=== PATIENT | female | born 1965 | race Hispanic/Latino ===

== ENCOUNTER 2016-08-07 05:00 | Emergency (ER) | payer OTHER ==
[~2016-08-07] VITALS: Ht 154.9 cm; Wt 49.6 kg
[~2016-08-07 05:00] MED LIST: FLUT16SP NS; GABA600T2 PO; INSU100I18 SUBQ; LEVO125T6 PO; NPH,100V11 SUBQ
--- NOTE | 2016-08-07 05:05 | ED.REPORT ---
HPI-General Illness Date of Service Aug 07, 2016 ED Provider: Dale Penny MD Patient is a 51 year old female with a history of diabetes mellitus with neuropathy, hypertension, and hypothyroidism who presents to the ED with right hip pain following multiple ground level fall this morning. The patient has been sleeping on the floor the last few nights, as she is in the process of moving. The patient got up to go to the bathroom and realized that her right leg was numb. She reported severe tingling down her entire leg. The patient was unable to ambulate due to those symptoms, falling 4-5x times while trying to walk to the bathroom. Patient now complains of right hip pain. Patient denies head injury, loss of consciousness, chest pain, abdominal pain, or any other injuries. The patient later clarified that she developed difficulty ambulating for the past week. She has experienced pain in her bilateral knees, with her knees sometimes giving out on her when she ambulates. The patient has trouble walking up her stairs as she becomes too weak. Nursing Notes Stated Complaint: R HIP/ LEG PAIN, GLF Nursing Notes Reviewed: Yes Allergies: Uncoded Allergies: SULPHA (Allergy, Intermediate, itchy/hives, 08/07/16) Scheduled Fluticasone Propionate (Fluticasone Propionate Nasal) 16 Gm [place].susp 1 SPRAY NS BID Gabapentin (Gabapentin) 600 Mg Tablet 600 MG PO BID Insulin Lispro (HumaLOG U100 Insulin Pen) 100 Unit/1 Ml Insuln.pen 1 UNIT SUBQ TID-INSULIN Blood Sugar Lispro Correction <151 0 units 151-175 1 unit 176-200 2 units 201-225 3 units 226-250 4 units 251-275 5 units 276-300 6 units 301-325 7 units 326-350 8 units 351-375 9 units 376-400 10 units >400 12 units Check blood sugars before meals and at bedtime. Use correction factor only before meals. Levothyroxine (Levothyroxine) 125 Mcg Tablet 125 MCG PO DAILY NPH, Human Insulin Isophane (HUMulin-N U100 Insulin Vial) 100 Unit/1 Ml Vial 40 UNIT SUBQ evening Naproxen (Naprosyn) 500 Mg Tablet 500 MG PO BID General Time Seen by MD: 05:04 Chief Complaint Other (right hip pain) Hx Obtained From: Patient Arrived By: Ambulance Sudden in Onset?: Yes Onset Occurred: Just prior to arrival Symptom Duration: Since onset Location: : Hip right Quality: Painful Severity: Current: Moderate Severity: Maximum: Moderate Recent Healthcare: No recent doctor visit, No recent hospitalization Similar Sx Previous: No Past Medical History Past Medical History Diabetes mellitus with neuropathy Hypothyroidism Anemia Foot ulcer - followed at wound care clinic Reports: Hypertension Past Surgical History none reported Family History Noncontributory Smoking History Never Smoker Social History Alcohol Use: Denies alcohol use Drug Use: Denies drug use Other Social History: Good social support, Lives with children, Local resident Ambulatory Status Independent Review of Systems Full Review of Systems Cardiovascular: Denies: Chest pain GI: Denies: Abdominal pain Musculoskeletal: Reports: Extremity pain, Joint pain Neurologic: Reports: Numbness, Problem walking, Weakness, Denies: Change LOC, Headache Complete sys rev & neg: except as marked. Physical Exam Vital Signs Vital Signs Date Time Temp Pulse Resp B/P Pulse Ox O2 Delivery O2 Flow Rate FiO2 08/07/16 06:47 36.8 84 14 142/78 98 Room Air 08/07/16 05:11 36.7 87 14 151/68 98 Room Air Initial VS: Reviewed Skin: Warm, Dry, No cyanosis Psychiatric: Mood/affect normal, Behavior normal, Normal thought content General/Constitutional: Awake, Alert, No acute distress Appearance / Presentation: Positive: Obese Head / Eyes: Atraumatic, Normocephalic, PERRL ENT: Airway patent Neck: Supple, Full range of motion, No midline vertebral tend Respiratory / Chest: Breath sounds NL, Breath sounds = bilat, No respiratory distress, No chest tenderness, No chest wall deformity, No crepitus Cardiovascular: Heart rate NL, Regular rhythm Abdomen: Soft, Non-tender, No guarding, No rebound Upper Extremities Upper Extremity / MS: Atraumatic, No deformity, Neurologic intact, Vascular intact Lower Extremity / Pelvis / MS: No deformity, Neurologic intact Right Hip: Positive: Tenderness present... (minimally tender with rotation of the right hip), Negative: Ecchymosis present, Swelling present... Neurologic: No motor deficits Subjective decreased sensation right foot, but can feel light touch. Interpretation & Diagnostics X-Ray Interpretation Xray Interpretation: Impression: No acute fracture. X-Ray Ordered: Pelvis, Hip right Interpretation / Wet Read by: Wet read ED physician Re-Eval/Medical Decision Med Decision/Clinical Course 51-year-old presents with tingling and numbness in the leg after sleeping on the floor all night. She has had progressive weakness and intermittent tingling in the past, with the story suggestive of possible spinal stenosis. CT of the lumbar spine reveals disc disease with foraminal narrowing, but no evidence of impingement on the thecal sac. She apparently has a compression neuropraxis presently, which should resolve. She will dose Decadron given. Naprosyn to follow. Follow-up with PCP. Discharged in stable condition. Cane or walker for gait support recommended. Source of Hx: Old records Time of Eval: 05:40 Patient Status: Condition improved Re-Evaluation/Progress Note: Rechecked the patient. Her x-ray was negative. Her daughter carries the diagnosis of MS and she is concerned that her mother has a similar process going on. Due to her symptoms she will have a CT scan of her back. Counseled Regarding: Diagnosis, Need for follow-up, When/why to return to ED Discharge & Departure Primary Impression: Neuropraxia of right lower extremity Additional Impressions: Contusion of right hip Encounter type: initial encounter Qualified Code: S70.01XA - Contusion of right hip, initial encounter Fall from ground level Disposition: Home Discharge Condition All VS Reviewed: Yes Condition: Stable Patient Instructions: Contusions in Adults (ED), Peripheral Neuropathy (ED) Referrals: Enrique Morgan MD (PCP) Tasneem Attestation Portions of this note were transcribed by Guillermina Mcgregor. I, Dr. Penyn personally performed the history, physical exam and medical decision-making; I reviewed and confirmed the accuracy of the information in the transcribed note. Signed by: Tasneem Carty, 08/07/2016 0603 copies to: Enrique Morgan MD, Christopher W MD Aug 07, 2016 05:05 Guillermina Mcgregor Aug 07, 2016 05:12
[2016-08-07 05:11] VITALS: BP 151/68; PULSE 87; RESP 14; O2SAT 98
[2016-08-07 06:47] VITALS: BP 142/78; PULSE 84; RESP 14; O2SAT 98
[2016-08-07] MEDS ORDERED: Dexamethasone 20 mg/2 mL Oral Solution PO ONE (07:30)
[2016-08-07] MEDS ORDERED: NAPR500T PO (07:54)
[2016-08-07 08:27] VITALS: BP 114/61; PULSE 88; RESP 16; O2SAT 95
--- NOTE | 2016-08-07 09:18 | DRSVH ---
PROCEDURE: X-RAY PELVIS W/LAT HIP (RT) ([id number]) INDICATIONS: fell on hip TECHNIQUE: AP pelvis with lateral view(s) of the right hip(s). COMPARISON: None. FINDINGS: Bones: No fractures or dislocations. Pelvic ring appears intact. No suspicious bony lesions. Soft tissues: The visualized bowel gas pattern is normal. No suspicious soft tissue calcifications. IMPRESSION: No displaced fracture seen. If there is continued pain, followup exam or additional sheila ging such as MRI or CT could be performed for further assessment. Dictated by: Jorge Hernandes RRA Interpreted: Luciano Yan MD on 08/07/2016 at 9:17 Transcribed by: TANIA on 08/07/2016 at 9:18 Approved by: Luciano Yan M.D. on 08/07/2016 at 15:40
--- NOTE | 2016-08-07 10:15 | DRSVH ---
PROCEDURE: CT LUMBAR SPINE WITHOUT CONTRAST ([id number]) INDICATIONS: Right leg numbness. Possible spinal stenosis TECHNIQUE: Noncontrast 3 mm thick sections acquired from the T12 level to the sacrum. Sagittal and coronal refo rmats were constructed. For radiation dose reduction, the following was used: automated exposure co ntrol. COMPARISON: None. FINDINGS: Image quality: Excellent. Bones: There is normal bony alignment. No acute vertebral body compression fractures. No suspiciou s lytic or blastic bony lesions. Mild multilevel degenerative disc disease and facet arthropathy are noted. There is [id number] L4-L5 central canal narrowing secondary to disc disease and facet ar thropathy. Moderate bilateral L4-L5 neural foraminal narrowing secondary to disc disease and facet ar thropathy. Soft tissues: No retroperitoneal masses or hematomas. Visualized aorta is normal in caliber. Scatte red atherosclerotic calcifications noted in the visualized abdominal and pelvic vasculature. IMPRESSION: No fracture. No acute osseous lesion. If symptoms and/or clinical suspicion for patholog y persists, evaluation with MRI may be helpful for further assessment. Dictated by: Francie Pham MD, PhD on 08/07/2016 at 10:10 Approved by: Francie Pham MD, PhD on 08/07/2016 at 10:13
== END 2016-08-07 08:28 | disposition home or self-care (01) ==
LOC: SED 05:00
DX: S84.21XA Injury of cutaneous sensory nerve at lower leg level, right leg, initial encounter (principal); S70.01XA Contusion of right hip, initial encounter; W18.39XA Other fall on same level, initial encounter; Y93.01 Activity, walking, marching and hiking; Y92.009 Unspecified place in unspecified non-institutional (private) residence as the place of occurrence of the external cause; Y99.8 Other external cause status; E11.9 Type 2 diabetes mellitus without complications; I10 Essential (primary) hypertension; E03.9 Hypothyroidism, unspecified; Z79.4 Long term (current) use of insulin; Z88.2 Allergy status to sulfonamides

== ENCOUNTER 2016-11-29 13:32 | Observation (INO) | payer OTHER ==
[~2016-11-29] VITALS: Ht 157.5 cm; Wt 104.5 kg
[~2016-11-29 13:32] MED LIST changes: +NAPR500T PO
[2016-11-29 13:47] VITALS: BP 127/71; PULSE 82; RESP 13; O2SAT 96
[2016-11-29] MEDS ORDERED: OMEP20CA11 PO (14:09)
[2016-11-29] MEDS ORDERED: TRAM50TA2 PO (14:09)
[2016-11-29] MEDS ORDERED: SIMV20TA4 PO (14:09)
[2016-11-29] MEDS ORDERED: FERR-83 PO (14:09)
[2016-11-29] MEDS ORDERED: LISI10TA PO (14:09)
[2016-11-29] MEDS ORDERED: 0.9% Sodium Chloride 1,000 ML IV ONE ×2 (14:42→20:15)
[2016-11-29] MEDS ORDERED: MetoCLOpramide 5 mg/mL 2 mL Inj IVPUSH ONE (14:45)
[2016-11-29 14:50] LABS: BASOPHILS % (AUTO) 0.4 % (0-3); EOSINOPHILS % (AUTO) 3.4 % (0-5); MONOCYTES % (AUTO) 6.8 % (4-12); Mean Corpuscular Hemoglobin 24.5 pg (27.0-35.0); Mean Corpuscular Volume 75.2 fL (81-100); NEUTROPHILS % (AUTO) 65.2 % (40-74); Platelet Count 298 bil/L (150-400)
--- NOTE | 2016-11-29 14:56 | ED.REPORT ---
HPI-General Illness Date of Service Nov 29, 2016 ED Provider: Malik Hurt PA-C Milady is a 51-year-old female with a history of diabetes and hypertension presenting to emergency Department with a chief complaint of headache and stiff neck. He was seen initially at urgent care and referred to the emergency department when her blood sugar was noted to be quite high. Patient describes a 3 month history of daily headaches which she describes as pressure, global, throbbing and involving left eye pain. She reports a headache several days ago caused a small amount of bleeding in her left eye. Headaches 09/21. Last night she reported that she developed stiffness in her neck and shoulders, tremors and felt quite weak. She reports that she has been experiencing weakness in her right hand which causes her to drop things as well as a sensation of numbness in her forearms and pain in her hands bilaterally. She also reports 3 month history of daily left-sided nosebleeds. Symptoms are associated with mild epigastric pain which is improved with omeprazole, nausea, and a one-month history of cough productive of clear sputum. she reports an episode in July where she experience right leg numbness for several days. This episode is apparently associated with a potential tick bite, she denies travel out of the region. Denies dizziness, vision changes, hearing changes, fever, shaking chills, history of smoking, vomiting, diarrhea, melena, hematochezia, urinary symptoms. Denies recent medication changes. Nursing Notes Stated Complaint: HIGH BLOOD SUGAR,BILATERAL ARM NUMBNESS Chief Complaint: General Complaint Nursing Notes Reviewed: Yes Allergies: Coded Allergies: Sulfa (Sulfonamide Antibiotics) (Verified Allergy, Intermediate, BUMPS ALL OVER MY BODY, 11/29/16) Scheduled Furosemide (Furosemide) 20 Mg Tab 20 MG PO QAM Gabapentin (Gabapentin) 600 Mg Tablet 600 MG PO QID Insulin Glargine (Lantus U100 Insulin Vial) 100 Unit/Ml Vial 25 UNIT SUBQ HS Insulin Human Lispro (HumaLOG U100 Insulin Vial) 100 Unit/Ml Unit 20 UNIT SUBQ DAILYWD HUMALOG 40 UNITS WITH BREAKFAST AND 20 UNITS WITH DINNER Insulin Human Lispro (HumaLOG U100 Insulin Vial) 100 Unit/Ml Unit 40 UNIT SUBQ DAILYWM HUMALOG 40 UNITS WITH BREAKFAST AND 20 UNITS WITH DINNER Levothyroxine (Levothyroxine) 125 Mcg Tablet 125 MCG PO DAILY Lisinopril (Lisinopril) 10 Mg Tablet 10 MG PO HS Loratadine (Loratadine) 10 Mg Capsule 10 MG PO HS Metformin (Glucophage) 1,000 Mg Tablet 1,000 MG PO BIDWM Simvastatin (Simvastatin) 20 Mg Tablet 20 MG PO HS Scheduled PRN Ibuprofen (Ibuprofen) 200 Mg Capsule 600 MG PO DAILY PRN PRN For Headache Omeprazole (Omeprazole) 20 Mg Capsule.dr 20 MG PO DAILY PRN PRN STOMACH ACID Tramadol (Tramadol) 50 Mg Tablet 50 MG PO TID PRN PRN BACK PAIN General Time Seen by MD: 14:15 Chief Complaint Other (high blood sugar, bilateral arm numbness) Past Medical History Past Medical History Diabetes mellitus with neuropathy Hypothyroidism Anemia Foot ulcer - followed at wound care clinic Reports: Hypertension Past Surgical History none reported Family History Noncontributory Smoking History Never Smoker Social History Alcohol Use: Denies alcohol use Drug Use: Denies drug use Other Social History: Good social support, Lives with children, Local resident Ambulatory Status Independent Review of Systems General: Denies fever, chills, malaise. HEENT: Admits headache, denies congestion, sore throat, sneezing Respiratory: Admits cough, denies shortness of breath, wheezing. Cardiovascular: Denies chest pain, palpitations. Gastrointestinal: Admits abdominal pain, denies vomiting, diarrhea, melena, hematochezia Genitourinary: Denies frequency, urgency, dysuria, hematuria. Otherwise as noted in HPI. Physical Exam General: Well appearing, well developed, obese, no acute distress. Head: Atraumatic, normocephalic. No mastoid tenderness. Eyes: No scleral icterus or injection. No discharge. PERRL. Vision grossly intact. Ears: Pinna and tragus nontender with manipulation. External auditory canal patent, atraumatic and without discharge. Tympanic membrane lindsay, shiny and translucent without fluid, bulging, retraction or perforation. Hearing grossly intact. Nose: No obvious source of bleeding is noted. Symmetrical, nares patent without discharge. Mild left frontal and maxillary sinus tenderness. Negative right frontal and maxillary sinus tenderness Mouth/pharynx: normal dentition, mucus membranes moist. Tonsils 2+ and symmetrical, uvula midline. Pharynx noninjected, no cobblestoning or discharge. Voice clear. Neck: Supple, excellent range of motion. No tenderness or lymphadenopathy. Trachea midline. Respiratory: Regular rate and rhythm. Breath sounds present, clear to auscultation and equal bilaterally. No respiratory distress. No increased work of breathing, speaks in complete sentences. Cardiovascular: Regular rate and rhythm, without murmur, gallop or rub. No pedal edema. Gastrointestinal: Abdomen flat and non-tender without guarding or rebound. Bowel sounds normoactive. Skin: Warm and dry. Neurological: Normal finger-nose, rapid hand, he will hypertension, negative pronator drift. Deltoid abduction, strength 5/5 B/L. Wrist flexion and extension, finger flexion and abduction slightly reduced on right when compared to left. Sensation to light touch intact over deltoid as well as first, third and fifth digits B/L. Biceps, triceps and brachioradialis reflexes difficult to elicit B/L. Negative Kernig and Brudzinski's. Cranial nerves: Vision grossly intact, PERRL, EOMI. Facial motion symmetrical, sensation to light touch over forehead, maxilla and mandible present and equal B /L. Voice clear and fluent, no drooling/pooling of saliva, uvula rises midline. Psychological: Alert and oriented. Speech appropriate, linear and logical. Behavior appropriate. Vital Signs Vital Signs Date Time Temp Pulse Resp B/P Pulse Ox O2 Delivery O2 Flow Rate FiO2 11/29/16 13:47 36.4 82 13 127/71 96 Room Air Normal Interpretation & Diagnostics Lab Results Interpretation Result Diagram: 11/29/16 1415 11/29/16 1415 Test 11/29/16 14:15 White Blood Count 10.2th/mm3 (3.8-10.1) Red Blood Count 4.40mil/mm3 (3.90-5.20) Hemoglobin 10.8g/dL (12.0-15.6) Hematocrit 33.1% (35.0-46.0) Mean Corpuscular Volume 75.2fL (81-100) Mean Corpuscular Hemoglobin 24.5pg (27.0-35.0) Mean Corpuscular Hemoglobin Concent 32.6% (32.0-37.0) Red Cell Distribution Width 15.5% (12.3-15.4) Platelet Count 298bil/L (150-400) Neutrophils (%) (Auto) 65.2% (40-74) Lymphocytes (%) (Auto) 24.0% (14-46) Monocytes (%) (Auto) 6.8% (4-12) Eosinophils (%) (Auto) 3.4% (0-5) Basophils (%) (Auto) 0.4% (0-3) Prothrombin Time 9.9sec (8.1-12.5) Prothromb Time International Ratio 0.93ratio Sodium Level 128mEq/L (134-144) Potassium Level 4.7mEq/L (3.5-5.2) Chloride Level 92mEq/L (97-108) Carbon Dioxide Level 20mmol/L (18-29) Blood Urea Nitrogen 28mg/dL (6-24) Creatinine 1.51mg/dL (0.57-1.00) Estimat Glomerular Filtration Rate 52mL/min (>59) Glucose Level 471mg/dL (60-99) Calcium Level 9.5mg/dL (8.5-10.1) X-Ray Chest Interpretation Chest Xray Interpretation: PROCEDURE: X-RAY CHEST, TWO VIEWS ([id number]) INDICATIONS: 1 month cough IMPRESSION: No radiographic evidence of acute cardiopulmonary pathology. Interpretation / Wet Read by: Interpret - Radiologist CT Head Interpretation PROCEDURE: CT BRAIN WITHOUT CONTRAST ([id number]) INDICATIONS: daily headaches, right hand weakness IMPRESSION: 1. No acute intracranial hemorrhage. 2. Left maxillary sinus disease appears chronic may be related to a dental process and clinical correlation is recommended. Interpretation / Wet Read by: Interpret - Radiologist Re-Eval/Medical Decision Med Decision/Clinical Course This 51-year-old female with a history of diabetes and hypertension presenting from the urgent care where her blood sugar was noted to be quite high. She presents to urgent care with concern for ongoing headaches, neck stiffness, forearm numbness and cough as described in history of present illness. Also reports some history of clumsiness and dropping things with her right hand as well as daily left-sided nosebleeds. Physical examination reveals mild reduced strength in the right upper extremity compared to the left. Otherwise normal neurological exam. Sensation is intact. Otherwise reassuring with a nontender abdomen, clear lung sounds, normal heart tones and vital signs. Order CBC CMP, INR, CXR, CT brain without contrast after consultation with Dr Novoa. Initiate treatment with normal saline, Reglan, ketorolac, acetaminophen, diphenhydramine. CT brain reveals left-sided sinusitis. CBC reveals trivial leukocytosis, mild microcytic anemia. CMP reveals glycemia at 450, CO2 is 20. Chest x-ray is normal. Discussed performing a lumbar puncture with the patient, who wishes to defer. I feel this is reasonable as the patient has no mental status changes, and her neck remains supple. My suspicion for meningitis is low. I find her labs reassuring against diabetic ketoacidosis. Patient reports that she manages her diabetes with insulin but does not have a glucose monitor at this time. I discussed findings with Dr. Novoa. He is concerned about unexplained neurological symptoms and recommends admission for stroke protocol. Discussed case with Dr. Dill, who accepted admission. Patient transferred to the floor in stable condition. . Consultation : Referral / Consult Name: Rosi Adams DO Consulted With: Hospitalist Call Returned at: 19:13 [employer] Estimator: Accepts admit Discharge & Departure Primary Impression: Suspected cerebrovascular accident (CVA) Additional Impression: Sinusitis Sinusitis location: maxillary Chronicity: acute Recurrence: not specified as recurrent Qualified Code: J01.00 - Acute maxillary sinusitis, unspecified Disposition: ADMITTED TO HOSPITAL Referrals: Enrique Morgan MD (PCP) EDSupervising Provider for APC: Florencio Novoa DO copies to: Enrique Morgan MD, Seth PA-C Nov 29, 2016 14:56
--- NOTE | 2016-11-29 15:11 | DRSVH ---
PROCEDURE: X-RAY CHEST, TWO VIEWS ([id number]) INDICATIONS: 1 month cough TECHNIQUE: 2 views of the chest were acquired. COMPARISON: None. FINDINGS: Surgical changes and devices: None. Lungs and pleura: No pleural effusions or pneumothorax. Lungs are clear. Mediastinum: Mediastinal contours are normal. Heart size is normal. Bones and chest wall: No suspicious bony abnormalities. Soft tissues appear unremarkable. IMPRESSION: No radiographic evidence of acute cardiopulmonary pathology. Dictated by: Buzz Mendoza M.D. on 11/29/2016 at 15:09 Approved by: Buzz Mendoza M.D. on 11/29/2016 at 15:10
[2016-11-29 15:16] LABS: INR 0.93 ratio
--- NOTE | 2016-11-29 16:11 | DRSVH ---
PROCEDURE: CT BRAIN WITHOUT CONTRAST ([id number]) INDICATIONS: daily headaches, right hand weakness TECHNIQUE: Noncontrast 4.5 mm thick angled axial sections acquired from the foramen magnum to the vertex, with c oronal reformats. COMPARISON: None. FINDINGS: Image quality: Diagnostic. Brain: There is no acute intra-axial or extra-axial hemorrhage. No extra-axial fluid collection is i dentified. There is no midline shift or mass effect. The orbits are grossly unremarkable. No large areas of diffusely decreased attenuation are evident within the brain to suggest diffuse cer ebral edema. No focal parenchymal abnormality is identified. The ventricles and cortical sulci are age-appropriate. Bones: Calvarium and visualized facial bones are grossly intact. The imaged paranasal sinuses and m astoid air cells are clear. The coastal thickening is noted involving the left maxillary sinus. The re is subtle lucency surrounding the root of one of the left maxillary molars, which is not completel y included on this exam. IMPRESSION: 1. No acute intracranial hemorrhage. 2. Left maxillary sinus disease appears chronic may be related to a dental process and clinical julissa elation is recommended. Dictated by: Cy Segovia M.D. on 11/29/2016 at 15:07 Approved by: Cy Segovia M.D. on 11/29/2016 at 15:09
[2016-11-29] MEDS ORDERED: INSLIS SUBQ ×2 (17:52)
[2016-11-29] MEDS ORDERED: LORA10CA9 PO (17:52)
[2016-11-29] MEDS ORDERED: INSU100V7 SUBQ (17:52)
[2016-11-29] MEDS ORDERED: IBUP200C PO (17:52)
[2016-11-29] MEDS ORDERED: FUR20 PO (17:52)
[2016-11-29] MEDS ORDERED: METF1000 PO (17:52)
[2016-11-29] MEDS ORDERED: Ondansetron 2 mg/mL 2 mL Inj IVPUSH PRN ×2 (19:20→19:50)
[2016-11-29] MEDS ORDERED: Alum-Mag Hydrox-Simeth 30 mL Suspension PO PRN ×2 (19:20→19:50)
[2016-11-29 19:37] VITALS: BP 112/70; PULSE 94; RESP 18; O2SAT 96
[2016-11-29] MEDS ORDERED: Labetalol 5 mg/mL 20 mL Inj IVPUSH PRN (19:50)
[2016-11-29] MEDS ORDERED: Polyethylene Glycol (PEG) 17 Gm Powder PO PRN (19:50)
[2016-11-29] MEDS ORDERED: Heparin 5,000 Unit/mL Inj SUBQ SCH (20:00)
--- NOTE | 2016-11-29 20:23 | PCM.HPMED ---
Subjective Date of Service Nov 29, 2016 Primary Provider: Admitting Physician: Rosi Adams DO Primary Care Physician: Enrique Morgan MD Attending Physician: Rosi Adams DO Chief Complaint: Weakness and dizziness History of Present Illness: Milady is a 51-year-old female with a history of diabetes and hypertension presenting with weakness, dizziness since waking up this AM, and tight shoulders with radiation into the neck. She was seen initially at urgent care and referred to the emergency department when her blood sugar was noted to be quite high. Patient describes a 3 month history of daily headaches which she describes as pressure, global, throbbing and involving left eye pain. She reports a headache several days ago caused a small amount of bleeding in the sclera of her left eye. Headaches 09/21. Last night she reported that she developed stiffness in her neck and shoulders, tremors and felt quite weak. She reports that she has been experiencing weakness in her right hand which causes her to drop things as well as a sensation of numbness in her forearms and pain in her hands bilaterally, today stating whe has pain in her had whenever it is touched. She also reports 3 month history of daily left-sided nosebleeds. Symptoms are associated with mild epigastric pain which is improved with omeprazole, nausea, and a one-month history of cough productive of clear sputum. she reports an episode in July where she experience right leg numbness for several days. This episode is apparently associated with a potential tick bite, she denies travel out of the region. Denies vision changes , hearing changes, fever, shaking chills, history of smoking,diarrhea, melena, hematochezia, dysuria, or change in frequency. Denies recent medication changes. Last ate greater than 24 days ago, endorses decreased by mouth intake and episode of vomiting "clear fluid" a couple of days ago. On presentation: 36.4, 82, 13, 127/71, 96% on room air BMP:Sodium 128, potassium 4.7, chloride 92, bicarbonate 20, BUN 28, creatinine 1.51, glucose 47 corrected sodium is between 134 and 137 depending on which formula use. And around gap 16 uncorrected, anion gap 23 with a corrected sodium of average 135. Hematology: 10.2 white blood cells, hemoglobin 10.8, MCV 75.2, normal platelets and differential. Chest x-ray performed did not show any cardiopulmonary process Head CT noncontrast did not show any hemorrhage, showed evidence of left maxillary sinus disease. Due to her acute weakness this morning, dizziness, concern is for CVA and was subsequently admitted for CVA evaluation among other laboratory dyscrasias. Review of Systems: A comprehensive review of systems was conducted with the patient and found to be negative except as above in the history of presenting illness. Allergies Coded Allergies: Sulfa (Sulfonamide Antibiotics) (Verified Allergy, Intermediate, BUMPS ALL OVER MY BODY, 11/29/16) Home Medications Furosemide 20 mg by mouth daily Insulin glargine 25 units subcutaneous daily at bedtime Humalog 20 units subcutaneous daily with dinner, 40 units subcutaneous with meals Levothyroxine 120 g daily Lisinopril 10 mg by mouth every night before bed Criminal 50 mg 3 times a day by mouth when necessary for back pain Gabapentin 600 mg 4 times a day Ibuprofen 600 mg by mouth daily for headache Loratadine 10 mg capsule 10 mg by mouth at night before bed Metformin 2000 mg by mouth with meals Omeprazole 20 mg by mouth daily Simvastatin 20 mg by mouth at bedtime. PMH Diabetes mellitus with neuropathy Hypothyroidism Anemia Foot ulcer - followed at wound care clinic Hypertension Surgical History C-sections Family History Mother: Diabetes mellitus type II, questionable lupus, at 62 years old Father: Diabetes mellitus, coronary artery disease, at 48 years old from [place]. Social History Hx Alcohol Use: No Hx Substance Use: No Hx Tobacco Use: No Smoking Status: Never Smoker Living Arrangement: with Family Exam Vital Signs Vital Sign - Last Date Time Temp Pulse Resp B/P Pulse Ox O2 Delivery O2 Flow Rate FiO2 11/29/16 19:37 94 18 112/70 96 11/29/16 13:47 36.4 Room Air Exam General: Laying in bed, lights turned off in the room, appears tired mildly distressed. HEENT: Normocephalic, atraumatic, EOMI grossly, small amount of blood just inferior to left iris in the subconjunctival space, neck is supple without lymphadenopathy, poor dentition, moderate tenderness over left maxillary sinus. Cardiovascular: Regular rate and rhythm, no clicks murmurs rubs, peripheral pulses 2/4 equal bilaterally Pulmonary: Clear to auscultation bilaterally, no W/R/R. Abdominal: Soft to palpation, bowel sounds present 4, no hepatosplenomegaly. Negative rebound. Extremities: No edema appreciated. No tenderness, asymmetry. I do not appreciate any rashes on her right thigh or leg. Neuro: Neurologically grossly intact, strength is equal bilaterally upper and lower extremities. Subeditor strength is equal bilaterally patellar reflexes equal bilaterally MSK: Able to move extremities on their own volition, strength 5 out of 5 equal bilaterally to upper and lower extremities. Psych: Oriented and alert 4, affect is congruent and appropriate. Lab and Diagnostics Result Diagram: 11/29/16 1415 11/29/16 1415 X-Rays, CTs and MRIs CT brain without contrast 11/29/2016 IMPRESSION: 1. No acute intracranial hemorrhage. 2. Left maxillary sinus disease appears chronic may be related to a dental process and clinical correlation is recommended. Dictated by: Cy Segovia M.D. on 11/29/2016 at 15:07 Chest x-ray performed 11/29/2016 IMPRESSION: No radiographic evidence of acute cardiopulmonary pathology. Dictated by: Buzz Mendoza M.D. on 11/29/2016 at 15:09 Assessment & Plan Milady Husain is a 51-year-old woman history of diabetes type II, insulin using, hypertension, hypo-thyroidism, and chronic anemia presented with acute upper extremity weakness, dizziness this morning, and upper extremity paresthesias, found to be hyperglycemic, have an acute kidney injury, and sinusitis. Acute kidney injury, present on admission, active Serum creatinine 1.51, patient states she has not had much by mouth intake and had a couple episodes of vomiting. BUN/creatinine ratio is 18.5, maybe combination of prerenal and developing diabetic glomerulonephritis. IV bolus 2 L, maintenance 125 mL normal saline per hour Reassess with a.m. labs, if remains elevated nephrology consultation. Hold nephrotoxic medications including ibuprofen and metformin. Continue lisinopril for time being. Acute dizziness and weakness, present on admission, active Concern is for cerebrovascular vascular accident, other potential etiologies include worsening anemia, hyperglycemia, hypothyroid, hypovolemia, viral illness. CT noncontrast demonstrated no bleeding -images personally and independently reviewed MRI stroke protocol order Aspirin 325 given, continue daily Symptoms outside of TPA window Urinalysis ordered ECHO ordered for AM Acute maxillary sinusitis, left side, present on admission, active CT demonstrated chronic findings of sinusitis, correlates with left-sided headache, facial tenderness, nosebleed. Augmentin daily Follow-up as outpatient Acute elevated anion gap, present on admission, active Anatomic gap secondary to be 25 with corrected sodium Fluids and insulin Serum lactic acid Serum bicarbonate is 20 Respirations are normal Acute Pseudohyponatremia, Present on admission, active. Sodium 128, when corrected for hyperglycemia corrects to 137 Continue to monitor with a.m. labs Acute Hyperglycemia, present on admission, active Serum glucose 471 Start medium dose correctional scale insulin now Accu-Cheks every 6 hours Chronic uncontrolled Diabetes type II, present on admission, active glucose elevated as above A1c ordered Hold home metformin Diabetes education Diabetic diet Medium dose correctional scale insulin Chronic Microcytic anemia, present on admission, active Hemoglobin 10.8, MCV 75.2, this is only mildly elevated from baseline at previous visit 2014 and 2007. Patient does not appear to be on iron supplementation from outpatient medications We will check iron panel with recommendations to follow-up for supplementation. Chronic Hypothyroidism number present on admission, active She takes 125 g of levothyroxine daily We will reassess TSH Continue home levothyroxine pending TSH results. Chronic hypertension, present on admission, active Blood pressure today appears stable, she is on furosemide and lisinopril We will continue both at this time. Subconjunctival hemorrhage, present on admission, stable Conveyed during history, mildly present on physical exam to the left eye, it is not causing any itching or distress. We will continue to monitor Report of recurrent nosebleeds, present on admission, stable Coags were normal Possibly related to maxillary sinusitis Assessment liver function with CMP Patient is admitted to observation status with anticipated length of stay less than 2 midnights, this is based on running diagnosis, treatment, and risk of adverse events. GI prophylaxis with home medication DVT prophylaxis subcutaneous upper Pain management, continue patient's home medications tramadol. CODE STATUS: DNR/DNI. Discussed at length with patient at bedside, this patient stated clearly that if her heart were to stop or she were to stop breathing she would like no interventions and to be allowed to . Pain Evaluation: Adequate Pain Control GI Prophylaxis: Proton Pump Inhibitor VTE Prophylaxis: Sub-Q Heparin (Unfractionated) Resuscitation Status: DNR/DNI:Do Not Resuscitate/Intubate Attending Statement The patient was seen and examined together with house staff on 11/29/2016 and I agree with the history, exam and plan as outlined in the note above. Kelvin Jaquez DO Nov 29, 2016 20:23 Rosi Adams DO Nov 29, 2016 22:31
[2016-11-29] MEDS ORDERED: Amoxicillin-Clav 875-125 mg Tablet PO SCH (20:30)
[2016-11-29] MEDS ORDERED: Insulin GLARgine 100 Unit/mL Syringe SUBQ SCH (21:00)
[2016-11-29] MEDS: Heparin 5,000 Unit/mL Inj SUBQ SCH (21:06)
[2016-11-29 21:13] LABS: Unsaturated Iron Binding 387.8 ug/dL
[2016-11-29] MEDS ORDERED: Glucose 40% Oral Gel 15 Gm Tube PO PRN (21:25)
[2016-11-29] MEDS ORDERED: Insulin Human REGular-Omnicell 100 Unit/mL ONE (21:40)
[2016-11-29] MEDS: Insulin Human REGular 300 Unit/3 mL Inj SUBQ SCH (21:51)
--- NOTE | 2016-11-29 22:20 | DRSVH ---
PROCEDURE: MRI STROKE PROTOCOL ([id number]) Pre- and post-contrast brain MRI, non-contrast brain MR angiogram, pre- and postcontrast neck MR dalila ogram INDICATIONS: Right-sided weakness, headache, and dizziness. TECHNIQUE: Brain: Noncontrast axial T1 spin echo, axial T2 fast spin echo, sagittal and axial FLAIR, coronal T2 fast spin echo, axial gradient echo, axial diffusion and ADC through the brain. After the administr ation of contrast, axial 3D VIBE of the cranial vasculature and brain. Brain MRA: Non-contrast 3-D time of flight MR angiogram, with multiple iyijiah-ajyphibku-vcvsbfdzyu (MIP) reformats performed. Neck MRA: Axial and sagittal TruFISP through the neck. Coronal dynamic MR angiogram during administ ration of contrast in the arterial and venous phases, with 3-dimenstional jnhnwet-lmbaxuvqc-qsygygggr n (MIP) reformats constructed from subtraction images. COMPARISON: [facility], CT, CT BRAIN WO CON, 11/29/2016, 16:01. FINDINGS: Image quality: There is motion artifact slightly limiting evaluation.. BRAIN: CSF spaces: Ventricles are normal in size and shape. Basal cisterns are patent. No extra-axial flu id collections. Brain: No intracranial hemorrhage, mass, or mass effect. Bryan-white matter interface is preserved. Diffusion weighted images demonstrate no acute infarct. Brainstem appears normal. Normal intravasc ular flow voids are present. No abnormal intracranial enhancement. Skull and face: Calvarial marrow signal is normal. Orbits appear normal. Sinuses: There is mild mucosal thickening within the maxillary, sphenoid, and ethmoid sinuses. There is partial fluid opacification of the right mastoid air cells suggesting mastoiditis. BRAIN MR ANGIOGRAM: Anterior circulation: Intracranial internal carotid arteries are normal in size and patent bilateral ly. The flow within the paired anterior cerebral arteries is patent bilaterally. The flow within th e middle cerebral arteries is patent bilaterally. The anterior communicating artery is not well seen . No high-grade stenoses, occlusions, or aneurysms. Posterior circulation: The visualized portions of the vertebral arteries appear patent and join to f orm a normal appearing basilar artery. The P1 segment of the right posterior cerebral artery is not well-visualized and may be congenitally absent likely due to persistent circulation with flow t o the right [place] [employer] supplied by the right posterior communicating artery. The differential is a segmenta l high-grade stenosis of the P1 segment of the right posterior communicating artery. NECK MR ANGIOGRAM: Carotids: Great vessels demonstrate conventional anatomy as they arise from the aortic arch. The or igins of the common carotid arteries appear patent. The calibers and courses of both common carotid arteries are normal. The carotid bulbs are widely patent. The proximal external carotid arteries ar e attenuated in appearance at their origins which may be due to technical artifact. The internal car otid arteries demonstrate normal course and caliber. Posterior circulation: The origins of the vertebral arteries appear patent. More superior portions of both vertebral arteries demonstrate normal course and caliber, and join to form a normal appearing basilar artery. Miscellaneous: Subclavian arteries appear patent. Pre-contrast images through the neck demonstrate no soft tissue abnormalities. IMPRESSION: BRAIN MRI: 1. No evidence of infarct or other acute intracranial abnormality. 2. Mild sinus mucosal disease. 3. Mild right mastoiditis. BRAIN MR ANGIOGRAM: 1. Probable persistent circulation on the right with the right posterior cerebral artery suppl ied through a posterior communicating artery. 2. No definite high-grade stenosis or occlusion of the central intracranial arteries. NECK MR ANGIOGRAM: 1. No definite high-grade stenosis or occlusion of the head and neck arteries. The carotid bulbs ar e widely patent. 2. Attenuated appearance of the proximal external carotid arteries bilaterally likely representing a rtifact, but may represent possible stenoses. The estimate of stenosis included in the report of the imaging study was calculated using the NASCET method Dictated by: Jarek Alvarado M.D. on 11/29/2016 at 21:02 Approved by: Jarek Alvarado M.D. on 11/29/2016 at 21:18
[2016-11-29 22:24] VITALS: BP 113/73; PULSE 83; RESP 18; O2SAT 97
[2016-11-29] MEDS: 0.9% Sodium Chloride 1,000 ML IV SCH (22:37)
--- NOTE | 2016-11-30 01:57 | NUR ---
ADMIT:Pt. arrived to [facility] from the ED via W/C, awake, alert and oriented. Reports H/A when asked about it she answers "it is just a sore feeling", denies n/v. Neuro checks reports numbness on both hands. Immediately upon arrival to [facility] pt. ambulated to the bathroom and voided. All VS and wt taken upon arrival. Has LAC with 1000 ml bag of NS to be given as a bolus ED orders, then start NS at 125 ml/hr. NC=[id number] Pt. received 10 units of reg. insulin in the ED. BG check every 6 hr. RN swallow screening done upon arrival, all WNL, pt. states she is hungry gave honey thick puree diet. A & O, vss. On going care.
[2016-11-30 02:40] VITALS: BP 100/61; PULSE 80; RESP 16; O2SAT 94
[2016-11-30] MEDS: Insulin Human REGular 300 Unit/3 mL Inj SUBQ SCH ×3 (03:02→12:20)
[2016-11-30] MEDS: 0.9% Sodium Chloride 1,000 ML IV SCH ×2 (04:15→14:29)
[2016-11-30] MEDS: Heparin 5,000 Unit/mL Inj SUBQ SCH ×3 (05:07→17:22)
[2016-11-30 06:26] VITALS: BP 101/61; PULSE 78; RESP 18; O2SAT 95
[2016-11-30 06:26] LABS: APPEARANCE,URINE CLOUDY (CLEAR,HAZY); COLOR,URINE YELLOW (YELLOW); OCCULT BLOOD,URINE TRACE (NEGATIVE); PH,URINE 5.5 (5.0-8.0); UROBILINOGEN,URINE NORMAL (NORMAL)
[2016-11-30] MEDS ORDERED: Pantoprazole 20 mg ER24 Tablet PO PRN (06:30)
--- NOTE | 2016-11-30 07:28 | NUR ---
ACTIVITY: Sleeping most of the night. Was up to the bathroom to void, urine specimen sent to lab this am. Numbness of both hands still the same. H/A improved. BG most recent was 314, MD notified. Pt. BG ac and HS as pt. is able to eat puree and honey thick until swallow eval done. Per please cont. same insulin regimen for now. Gave report to DAVID Randall
[2016-11-30 07:36] LABS: BASOPHILS % (AUTO) 0.5 % (0-3); EOSINOPHILS % (AUTO) 5.7 % (0-5); MONOCYTES % (AUTO) 8.1 % (4-12); Mean Corpuscular Hemoglobin 24.1 pg (27.0-35.0); Mean Corpuscular Volume 75.9 fL (81-100); NEUTROPHILS % (AUTO) 49.9 % (40-74); Platelet Count 257 bil/L (150-400)
[2016-11-30] MEDS ORDERED: Amoxicillin-Clav 875-125 mg Tablet PO SCH (08:30)
--- NOTE | 2016-11-30 10:38 | NUR ---
Social Work: Screening/Readiness for Discharge/Multidisciplinary Rounds D: EMR reviewed. Pt is a 51 y/o female admitted [place] - no readmit risk score assigned - for CVA per H&P. Pt's insurance is [employer] and PCP is Enrique Morgan MD. Per EMR, pt lives at home with her family in [place]. Pt's NOK is sister Jaci Arciniega MD. Pt declined DPOA/advanced directive ppw upon admit. Per EMR, pt does not screen in for full assessment. Pt discussed in multidisciplinary rounds, no SW needs identified, no MD orders received. Per MD, pt is medically for discharge home today via POV - MD indicated no SW needs for discharge. SW will continue to follow pt for potential needs that may arise prior to discharge. A: Pt who is independent at baseline and capable of self-care. P: Pt anticipated to discharge home today via POV. No SW needs identified at this time, no MD order(s) received. SW will continue to follow pt for needs that may arise prior to discharge. JORDAN Connolly
[2016-11-30 12:53] VITALS: BP 119/79; PULSE 85; RESP 18; O2SAT 96
--- NOTE | 2016-11-30 16:47 | NUR ---
neuro pt having no neuro symptoms except continued numbness bilat hands, she has chronic numbness but worse now, she says it's because her hands are swollen. She has not had a H/A all shift, she feels normal other than her hands now
[2016-11-30] MEDS ORDERED: Insulin LISPRO 300 Unit/3 mL Inj SUBQ SCH (17:00)
[2016-11-30] MEDS ORDERED: Insulin LISPRO Medium-Dose Scale SUBQ SCH (17:30)
[2016-11-30] MEDS ORDERED: FUR20 PO (17:32)
[2016-11-30] MEDS ORDERED: AGM875T PO (17:32)
--- NOTE | 2016-11-30 17:38 | PCM.DC.MED ---
Discharge Summary Date of Service Nov 30, 2016 Dates of Hospitalization Date of Hospital Admission Nov 29, 2016 at 19:25 Date of Discharge: Nov 30, 2016 Providers: Admitting Physician: Rosi Adams DO Primary Care Physician: Enrique Morgan MD Attending Physician: Tr Perez MD Diagnosis at Time of Discharge Diagnosis at Time of Discharge UTI, ARF Procedures XRay, CTs & MRIs CT brain without contrast 11/29/2016 IMPRESSION: 1. No acute intracranial hemorrhage. 2. Left maxillary sinus disease appears chronic may be related to a dental process and clinical correlation is recommended. Dictated by: Cy Segovia M.D. on 11/29/2016 at 15:07 Chest x-ray performed 11/29/2016 IMPRESSION: No radiographic evidence of acute cardiopulmonary pathology. Dictated by: Buzz Mendoza M.D. on 11/29/2016 at 15:09 MRI BRAIN MRI: 1. No evidence of infarct or other acute intracranial abnormality. 2. Mild sinus mucosal disease. 3. Mild right mastoiditis. BRAIN MR ANGIOGRAM: 1. Probable persistent circulation on the right with the right posterior cerebral artery supplied through a posterior communicating artery. 2. No definite high-grade stenosis or occlusion of the central intracranial arteries. NECK MR ANGIOGRAM: 1. No definite high-grade stenosis or occlusion of the head and neck arteries. The carotid bulbs are widely patent. 2. Attenuated appearance of the proximal external carotid arteries bilaterally likely representing artifact, but may represent possible stenoses. Hospital Course Hospital Course:Milady Husain is a 51-year-old woman history of diabetes type II, insulin using, hypertension, hypothyroidism, and chronic anemia presented with upper extremity weakness, dizziness this morning, and upper extremity paresthesias,Patient was diagnosed with acute kidney failure( Lisinopril, furosemide), UTI, chronic maxillary sinusitis. Patient was treated with Augmentin, IV fluids. Next day patient improved and at discharge her home. She will have follow-up with her primary care doctor for further management. I held her lisinopril on discharge she can resume it later. I started the patient on baby aspirin in the settings of hypertension and diabetes. After patient improved she was discharged home with recommendation to follow up with her PCP for further management of her medical problems. Patient was provided with prescription for Glucometer, strips and lancets . Patient Condition @ Discharge: good Discharge Disposition: home Discharge Activity: resume regular activity, patient was advised to avoid heavy physical work or exertion Discharge Diet: regular DM diet, heart healthy, low fat, low salt, high fiber Information Provided to Patient: information about discharge medications Discharge Medications: I discussed with patient medication dosage, usage, goals of therapy, side effects, alternatives. During discharge patient was alert, oriented, fully competent, able to make own informed decisions. We discussed possible severe side effects, adverse reactions , benefits, risks, alternatives of current and newly prescribed medications and diagnostic procedures. Patient verbalized understanding and agreed to current plan of care and discharge. DISCHARGE ACTIVITY: 1. Discussed with patient re: discharge plan of care/treatment, and follow up care/services. 2. Patient agreed with discharge plan and further plan of care, all questions were answered/addressed, no further questions at the time of discharge. Exam Vital Signs (Last) Date Time Temp Pulse Resp B/P Pulse Ox O2 Delivery O2 Flow Rate FiO2 11/30/16 12:53 36.4 85 18 119/79 96 Room Air Test 11/29/16 14:15 11/29/16 21:12 11/30/16 06:00 11/30/16 07:20 Prothrombin Time 9.9sec (8.1-12.5) Prothromb Time International Ratio 0.93ratio Hemoglobin A1c 13.7% (4.8-5.6) Iron Level 29ug/dL (35-150) Total Iron Binding Capacity 417ug/dL (250-450) Percent Iron Saturation 7%sat (15-50) Unsaturated Iron Binding 387.8ug/dL Lactic Acid Level 1.6mmol/L (0.4-2.0) Magnesium Level 2.0mg/dL (1.6-2.6) Triglycerides Level 297mg/dL (0-149) Cholesterol Level 198mg/dL (100-199) LDL Cholesterol, Calculated 107.600mg/dL (0-99) VLDL Cholesterol 59.400mg/dL HDL Cholesterol 31mg/dL (>39) Cholesterol/HDL Ratio 6.39 (0.0-4.4) Thyroid Stimulating Hormone (TSH) 28.180uIU/mL (0.450-4.500) Free Thyroxine 0.89ng/dL (0.82-1.77) Urine Color Yellow (YELLOW) Urine Appearance Cloudy (CLEAR,HAZY) Urine pH 5.5 (5.0-8.0) Urine Specific [place] 1.020 (1.003-1.035) Urine Protein Tracemg/dL (NEG,TRACE) Urine Glucose (UA) 500mg/dL (NEGATIVE) Urine Ketones Negativemg/dL (NEGATIVE) Urine Occult Blood Trace (NEGATIVE) Urine Nitrite Negative (NEGATIVE) Urine Bilirubin Negative (NEGATIVE) Urine Urobilinogen Normalmg/dL (NORMAL) Urine Leukocyte Esterase Small (NEGATIVE) Urine RBC 0-2/hpf (0-2) Urine WBC >50/hpf (0-5) Urine Epithelial Cells Moderate/hpf (NONE-MOD) Urine Crystals None seen (NONE SEEN) Urine Bacteria Many/hpf (NONE-FEW) Urine Hyaline Casts 5/20/lpf (NONE) Urine Granular Casts None seen (NONE SEEN) Urine Waxy Casts None seen (NONE SEEN) Urine Red Blood Cell Casts None seen (NONE SEEN) Urine White Blood Cell Casts None seen (NONE SEEN) Urine Mucus None seen (None Seen) Urine Trichomonas None seen (NONE SEEN) Urine Yeast None (NONE SEEN) Urinalysis Comment None Urine Culture Reflexed Indicated White Blood Count 5.9th/mm3 (3.8-10.1) Red Blood Count 3.86mil/mm3 (3.90-5.20) Hemoglobin 9.3g/dL (12.0-15.6) Hematocrit 29.3% (35.0-46.0) Mean Corpuscular Volume 75.9fL (81-100) Mean Corpuscular Hemoglobin 24.1pg (27.0-35.0) Mean Corpuscular Hemoglobin Concent 31.7% (32.0-37.0) Red Cell Distribution Width 15.6% (12.3-15.4) Platelet Count 257bil/L (150-400) Neutrophils (%) (Auto) 49.9% (40-74) Lymphocytes (%) (Auto) 35.6% (14-46) Monocytes (%) (Auto) 8.1% (4-12) Eosinophils (%) (Auto) 5.7% (0-5) Basophils (%) (Auto) 0.5% (0-3) Sodium Level 133mEq/L (134-144) Potassium Level 4.3mEq/L (3.5-5.2) Chloride Level 101mEq/L (97-108) Carbon Dioxide Level 20mmol/L (18-29) Blood Urea Nitrogen 31mg/dL (6-24) Creatinine 1.00mg/dL (0.57-1.00) Estimat Glomerular Filtration Rate 84mL/min (>59) Glucose Level 306mg/dL (60-99) Calcium Level 8.5mg/dL (8.5-10.1) Total Bilirubin 0.2mg/dL (0.0-1.2) Aspartate Amino Transf (AST/SGOT) 13U/L (0-50) Alanine Aminotransferase (ALT/SGPT) 13U/L (0-32) Alkaline Phosphatase 80U/L (25-150) Total Protein 6.3g/dL (6.4-8.4) Albumin 3.5g/dL (3.4-5.0) Discharge Medications Discharge Medications Amoxicillin/Clav K 875-125 mg (Amoxicillin/Clav K 875-125 mg) 875 Mg Tab 1 TAB PO BID Prescribed by: CAYDEN DELGADILLO MD Aspirin (Aspirin) 81 Mg Tablet 81 MG PO DAILY Prescribed by: CAYDEN DELGADILLO MD Gabapentin (Gabapentin) 600 Mg Tablet 600 MG PO QID (Reported) Insulin Glargine (Lantus U100 Insulin Vial) 100 Unit/Ml Vial 25 UNIT SUBQ HS ( Reported) Insulin Human Lispro (HumaLOG U100 Insulin Vial) 100 Unit/Ml Unit 20 UNIT SUBQ DAILYWD (Reported) HUMALOG 40 UNITS WITH BREAKFAST AND 20 UNITS WITH DINNER Insulin Human Lispro (HumaLOG U100 Insulin Vial) 100 Unit/Ml Unit 40 UNIT SUBQ DAILYWM (Reported) HUMALOG 40 UNITS WITH BREAKFAST AND 20 UNITS WITH DINNER Levothyroxine (Levothyroxine) 125 Mcg Tablet 125 MCG PO DAILY Prescribed by: TONEY HAYNES Lisinopril (Lisinopril) 10 Mg Tablet 10 MG PO HS (Reported) Loratadine (Loratadine) 10 Mg Capsule 10 MG PO HS (Reported) Metformin (Glucophage) 1,000 Mg Tablet 1,000 MG PO BIDWM (Reported) Simvastatin (Simvastatin) 20 Mg Tablet 20 MG PO HS (Reported) As needed Furosemide (Furosemide) 20 Mg Tab 20 MG PO DAILY PRN PRN for swelling Prescribed by: CAYDEN DELGADILLO MD Ibuprofen (Ibuprofen) 200 Mg Capsule 600 MG PO DAILY PRN PRN For Headache ( Reported) Omeprazole (Omeprazole) 20 Mg Capsule.dr 20 MG PO DAILY PRN PRN STOMACH ACID ( Reported) Tramadol (Tramadol) 50 Mg Tablet 50 MG PO TID PRN PRN BACK PAIN (Reported) Tr Perez MD Nov 30, 2016 17:38 Tr Perez MD Nov 30, 2016 17:38
[2016-11-30] MEDS ORDERED: ASPI-973 PO (17:40)
--- NOTE | 2016-11-30 19:17 | NUR ---
discharged home with family, will have f/u appt with her PCP, new Rx given, including Rx for Glucometer, she lost her own. pt is eating/drinking well, ambulatory. last BG was 273, BG has been steadily decreasing after receiving 1st dose of insulin
== END 2016-11-30 18:47 | disposition home or self-care (01) ==
LOC: SED 13:32 → MOC 19:25 → OSC 21:53
PROVIDERS: ADMIT Internal Medicine; ATTEND Internal Medicine
DX: N17.9 Acute kidney failure, unspecified (principal); N39.0 Urinary tract infection, site not specified; E11.65 Type 2 diabetes mellitus with hyperglycemia; E11.40 Type 2 diabetes mellitus with diabetic neuropathy, unspecified; R20.0 Anesthesia of skin; R04.0 Epistaxis; J01.00 Acute maxillary sinusitis, unspecified; D50.8 Other iron deficiency anemias; H11.32 Conjunctival hemorrhage, left eye; Z79.84 Long term (current) use of oral hypoglycemic drugs; Z79.4 Long term (current) use of insulin; E03.9 Hypothyroidism, unspecified; I10 Essential (primary) hypertension; Z66 Do not resuscitate
CPT/HCPCS: 36415; 70450; 70549; 70553; 71020; 80048; 80053; 80061; 81000; 82306; 82948; 83036; 83540; 83550; 83605; 83735; 84439; 84443; 85025; 85610; 87077; 87086; 87088; 87186; 96361; 96374; 96375; 97161; 99285; A9585; G0378; J1200; J1644; J1815; J1885; J2765; J7030